=== PATIENT | female | born 1990 | race Caucasian/White ===

== ENCOUNTER 2017-11-16 16:38 | Emergency (ER) | payer OTHER ==
[~2017-11-16] VITALS: Ht 149.9 cm; Wt 59.8 kg
[~2017-11-16 16:38] MED LIST: BCPILLS PO
[2017-11-16 16:49] VITALS: BP 128/65; PULSE 82; TEMP 36.8; O2SAT 98; Ht 149.9 cm; Wt 59.8 kg
--- NOTE | 2017-11-16 17:12 | EMERGENCY ROOM VISIT NOTE ---
History First contact with patient: 16:55 Chief Complaint: BITE Stated Complaint: INSECT BITE, SWOLLEN LYMPH NODES, PHIPPS History of Present Illness The patient is a 27 year old female who presents to the Emergency Room with complaints of multiple insect bites. The patient states that she first noticed multiple insect bites 2 days ago. She states they have been extremely itchy and she has had a burning sensation rated a 6/10. She believes that one of the lymph nodes in the left side of her neck is swollen. She has had bedbugs in her house before and is unsure if these could be due to bedbugs. She denies any fever/chills. Review of Systems A complete 10 point review of systems was reviewed with the patient with pertinent positives and negatives as per history of present illness. All else were negative. Past Medical/Surgical History Surgical Problems: (1) History of appendectomy Social History Smoking Status: Never Smoker Alcohol Use: none Housing Status: lives with family Current/Historical Medications Scheduled Control Pills ( Control Pills), 1 TAB PO DAILY Physical Exam Vital Signs Date Time Temp Pulse Resp B/P (MAP) Pulse Ox O2 Delivery O2 Flow Rate FiO2 11/16/17 16:49 36.8 82 16 128/65 98 Room Air Physical Exam VITALS: Vitals are noted on the nurse's note and reviewed by myself. Vital signs stable. GENERAL: This is a 27-year-old female, in no acute distress, nondiaphoretic, well-developed well-nourished. SKIN: There are a few small erythematous papules on the anterior chest as well as 3 linear papules to the anterior left shoulder. There is minimal surrounding erythema to these. EARS: External auditory canals clear, tympanic membranes pearly pineda without erythema or effusion bilaterally. EYES: Pupils equal round and reactive to light and accommodation. MOUTH: Mucous membranes moist. Tonsils are not enlarged. Pharynx without erythema or exudate. NECK: Supple without nuchal rigidity. No lymphadenopathy. HEART: Regular rate and rhythm without murmurs gallops or rubs. LUNGS: Clear to auscultation bilaterally without wheezes, rales or rhonchi. NEURO: Patient was alert and oriented to person place and time. Medical Decision & Procedures Medical Decision The patient was evaluated as above. She sustained multiple insect bites. There is mild surrounding erythema likely due to histamine reaction. No evidence of cellulitis. Patient was instructed to take Benadryl and use over- the-counter anti-itch creams for symptomatic relief. She did feel that one of her cervical lymph nodes was enlarged, however on exam I do not feel any abnormal enlargement of the lymph nodes. The patient was reassured. She was instructed to follow-up with her primary care provider. She verbalized understanding of my assessment and treatment plan. Medication Reconcilliation Current Medication List: was personally reviewed by me Blood Pressure Screening Patient's blood pressure: Normal blood pressure Impression Primary Impression: Insect bites Departure Information Dispostion Home / Self-Care Condition GOOD Patient Instructions My [facility] Additional Instructions You should take Benadryl (diphenhydramine) 25-50 mgs every 6 hours as needed for itching. You can find this medicine [id number]. Be aware that Benadryl can make you drowsy. You may use an [id number] anti-itch cream such as a Benadryl cream to help improve the itching. Observe the areas for any signs of worsening redness, warmth or drainage. If this occurs he should be evaluated here or by your primary care provider. Return to the ED with any worsening or new/concerning symptoms. Problem Qualifiers Primary Impression: Insect bites Encounter type: initial encounter Qualified Codes: W57.XXXA - Bitten or stung by nonvenomous insect and other nonvenomous arthropods, initial encounter
== END 2017-11-16 17:20 | disposition home or self-care (01) ==
LOC: C.EDB 16:39 → C.EDD 17:20
DX: S20.369A Insect bite (nonvenomous) of unspecified front wall of thorax, initial encounter (principal); S40.262A Insect bite (nonvenomous) of left shoulder, initial encounter; W57.XXXA Bitten or stung by nonvenomous insect and other nonvenomous arthropods, initial encounter; Z79.3 Long term (current) use of hormonal contraceptives